=== PATIENT | female | born 1955 ===

== ENCOUNTER 2019-06-05 04:09 | Outpatient (CLI) | payer MEDICARE, BC | END 2019-06-05 23:59 | disposition home or self-care (01) | LOC: DIABETIC 04:09 | PROVIDERS: ATTEND Specialist | DX: E10.9 Type 1 diabetes mellitus without complications (principal); Z79.899 Other long term (current) drug therapy; Z88.6 Allergy status to analgesic agent | CPT/HCPCS: G0108 ==

== ENCOUNTER 2019-09-07 04:16 | Outpatient (CLI) | payer MEDICARE, BC | END 2019-09-07 23:59 | disposition home or self-care (01) | LOC: DIABETIC 04:16 | PROVIDERS: ATTEND Specialist | DX: E10.9 Type 1 diabetes mellitus without complications (principal) | CPT/HCPCS: G0108 ==